=== PATIENT | female | born 1950 ===

== ENCOUNTER 2021-07-14 12:15 | Inpatient (IN) | payer OTHER ==
[~2021-07-14] VITALS: Ht 160 cm; Wt 45.4 kg
[2021-07-14] MEDS ORDERED: COZAAR100 MG PO (14:42)
[2021-07-14] MEDS ORDERED: NABUMETONE750 MG PO (14:42)
[2021-07-14] MEDS ORDERED: IRON236 MG PO (14:42)
[2021-07-14] MEDS ORDERED: ZANAFLEX2 M1 PO (14:43)
[2021-07-14] MEDS ORDERED: LEVO-T150 MCG PO (14:43)
[2021-07-14] MEDS ORDERED: CHILDREN'S ASPI81 MG PO (14:43)
[2021-07-14] MEDS ORDERED: GABAPENTIN400 MG PO (14:43)
[2021-07-14] MEDS ORDERED: ZOCOR20 MG PO (14:44)
[2021-07-16] MEDS ORDERED: REPLENS6.7 GM (08:13)
== END 2021-07-18 14:48 | disposition home or self-care (01) | DRG 743 ==
LOC: OB/GYN 07-16 05:40 → O/R 07-16 05:40 → SURH 07-16 07:00 → OB/GYN 07-16 11:29 → SURH 07-16 13:15 → OB/GYN 07-18 14:48
PROVIDERS: ADMIT Specialist; ATTEND Specialist
PROC: 0UT70ZZ Resection of Bilateral Fallopian Tubes, Open Approach (ICD-10-PCS; 2021-07-16)
PROC: 0UT20ZZ Resection of Bilateral Ovaries, Open Approach (ICD-10-PCS; 2021-07-16)
PROC: 0TN70ZZ Release Left Ureter, Open Approach (ICD-10-PCS; 2021-07-16)
PROC: 0TN60ZZ Release Right Ureter, Open Approach (ICD-10-PCS; 2021-07-16)
PROC: 0UQF0ZZ Repair Cul-de-sac, Open Approach (ICD-10-PCS; 2021-07-16)
PROC: 0USG0ZZ Reposition Vagina, Open Approach (ICD-10-PCS; 2021-07-16)
PROC: 0WBH0ZZ Excision of Retroperitoneum, Open Approach (ICD-10-PCS; 2021-07-16)
PROC: 3E1M38Z Irrigation of Peritoneal Cavity using Irrigating Substance, Percutaneous Approach (ICD-10-PCS; 2021-07-16)
PROC: 0UT90ZZ Resection of Uterus, Open Approach (ICD-10-PCS; principal; 2021-07-16 07:00)
DX: D27.0 Benign neoplasm of right ovary (principal); Z20.822 Contact with and (suspected) exposure to COVID-19; D25.0 Submucous leiomyoma of uterus; N72 Inflammatory disease of cervix uteri; D25.2 Subserosal leiomyoma of uterus